=== PATIENT | male | born 1970 | race Caucasian/White ===

== ENCOUNTER 2024-09-11 18:54 | Emergency (ER) | payer MEDICARE, MEDICAID, SELFPAY ==
[2024-09-11 19:00] VITALS: BP 106/68; PULSE 83; TEMP 36.8; O2SAT 94
--- NOTE | 2024-09-11 19:00 | ECG_ITS ---
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 Measurements Intervals [place] Rate: 82 P: 60 SC: 182 QRS: 37 QRSD: 82 T: 34 QT: 346 QTc: 385 Interpretive Statements [address] elevation, probably early repolarization 9130 borderline ECG No previous ECG available for comparison Electronically Signed On 09-12-2024 8:40:15 EDT by DORITA DECKER M.D.
[2024-09-11 19:04] VITALS: PULSE 87
[2024-09-11 19:06] VITALS: BP 106/71; PULSE 89
[2024-09-11 19:10] VITALS: PULSE 87
[2024-09-11 19:20] VITALS: PULSE 83
[2024-09-11 19:30] VITALS: BP 111/75; PULSE 80
--- NOTE | 2024-09-11 19:34 | ED.GENADUL1 ---
HPI HPI - General Adult General Chief complaint: Altered Mental Status Stated complaint: ALTERED MENTAL STATUS Time Seen by Provider: 09/11/24 19:23 Source: patient Mode of arrival: ambulance History of Present Illness HPI narrative: 53-year-old male presents to the emergency department because he was walking around and he was picking up trash and did not seem to know where he was. He was brought here for evaluation. His niece was contacted and he lives with her. She states that this is his normal state. He walks around for an hour or 2 but seems to get lost today and did not come home. She contacted the police and they had already brought him here. There was no injury and he has no complaints and she reports that this is his normal self. She reports that he had brain cancer years ago and has been mind of the 13-year-old. Related Data Allergies Allergy/AdvReac Type Severity Reaction Status Date / Time No Known Drug Allergies Allergy Verified 09/11/24 19:03 Opioid HPI Opioid Management Most Recent Opioid Data: No Data to Display Review of Systems ROS Narrative Not obtainable, psychiatric disorder Exam Narrative Exam Narrative: Nurses note and vital signs reviewed and patient is not hypoxic. General: The patient appears in no apparent distress. Patient is resting comfortably on cart. Skin: Warm, dry, no pallor noted. There is no rash noted. Head: Normocephalic, atraumatic Eye: Normal conjunctiva, no drainage Ears, Nose, Mouth, and Throat: oral mucosa is moist. Nares patent. Cardiovascular: Regular Rate and Rhythm Respiratory: Patient is in no distress, no accessory muscle use, lungs are clear to auscultation, no wheezing, rales or rhonchi Back: non-tender GI: Soft and nontender Musculoskeletal: The patient has no evidence of calf tenderness, no pitting edema, symmetrical pulses noted bilaterally Neurological: Awake and alert. He knows his name and that he is in a hospital and was able to identify that he is at [facility]. He did not know the year. This is his baseline according to his niece. Psychiatric: Cooperative Constitutional Vital Signs, click to edit/add: Last Vital Signs Temp 98.3 F 09/11/24 19:00 Pulse 87 09/11/24 19:10 Resp 25 H 09/11/24 19:10 BP 106/71 09/11/24 19:06 Pulse Ox 94 L 09/11/24 19:00 O2 Del Method Room Air 09/11/24 19:00 Course Vital Signs Vital signs: Vital Signs Temperature 98.3 F 09/11/24 19:00 Pulse Rate 83 09/11/24 19:00 Respiratory Rate 18 09/11/24 19:00 Blood Pressure 106/68 09/11/24 19:00 Pulse Oximetry 94 L 09/11/24 19:00 Oxygen Delivery Method Room Air 09/11/24 19:00 Temperature 98.3 F 09/11/24 19:00 Pulse Rate 87 09/11/24 19:10 Respiratory Rate 25 H 09/11/24 19:10 Blood Pressure 106/71 09/11/24 19:06 Pulse Oximetry 94 L 09/11/24 19:00 Oxygen Delivery Method Room Air 09/11/24 19:00 Medical Decision Making MDM Narrative Medical decision making narrative: He is at his baseline and is released in the care of his knees. Differential Diagnosis Differential Diagnosis: Altered mental status, substance abuse, normal exam Discharge Plan Discharge Chief Complaint: Altered Mental Status Clinical Impression: Normal exam Patient Disposition: Home, Self-Care Time of Disposition Decision: 19:33 Condition: Good Mode of Transportation: Private Vehicle Print Language: Montenegrin Instructions: Normal Exam (ED) Referrals: Physician,Non-Staff, MD [Primary Care Provider] - 1 week
== END 2024-09-11 19:44 | disposition home or self-care (01) ==
PROVIDERS: Emergency Provider Emergency Medicine
DX: Z03.89 Encounter for observation for other suspected diseases and conditions ruled out (principal); Z85.841 Personal history of malignant neoplasm of brain
CPT/HCPCS: 82948; 93005; 99283